=== PATIENT | female | born 1935 | race Caucasian/White ===

== ENCOUNTER 2021-12-14 03:43 | Observation (INO) ==
[2021-12-14] MEDS ORDERED: ALBUTEROL SULFATE 200 PUFF INHALER INH ONE (04:12)
--- NOTE | 2021-12-14 04:18 | Emergency Department Note ---
HPI General Chief complaint: Weakness Stated complaint: "not feeling well" Time Seen by Provider: 12/14/21 03:51 Source: patient and EMS Mode of arrival: EMS Limitations: no limitations History of Present Illness HPI Narrative: Narrative:86-year-old history of fibromyalgia, hypertension, hypothyroid, CHF, TIA, CABG, dementia, ? COPD presented to the ED with a some mild dyspnea that occurred just prior to arrival. She simply says that she had a hard time going to bed and sleeping tonight but for no obvious particular reason. And then she woke up at some point with shortness of breath. She has had some trouble occasionally like this in the past and was simply treated with albuterol family says but does not know of what diagnosis or of any chronic lung disease. Patient says she felt fine otherwise earlier today when she went to bed. She adamantly denies any other complaints at any time including fever chills URI symptoms, cough, hemoptysis, chest pain, abdominal pain, nausea vomiting diarrhea, genitourinary symptoms. She denies any generalized weakness but simply says she feels tired because she has not slept well tonight. She otherwise says she feels fine currently but is requiring some nasal oxygen Related Data Home Medications Medication Instructions Recorded Confirmed lisinopril 20 mg tablet 20 mg PO HS 30 Days #30 09/16/16 07/20/21 metoprolol tartrate 25 mg tablet 50 mg PO BID 30 Days #120 tab 03/27/18 07/20/21 apixaban 2.5 mg tablet (Eliquis) 2.5 mg PO HS 07/20/21 07/20/21 apixaban 5 mg tablet (Eliquis) 5 mg PO QAM 07/20/21 07/20/21 atorvastatin 20 mg tablet 20 mg PO HS 07/20/21 07/20/21 diltiazem HCl 120 mg capsule,24 120 mg PO HS 07/20/21 07/20/21 hr,extended release furosemide 20 mg tablet 20 mg PO QAM 07/20/21 07/20/21 ibuprofen 200 mg tablet 400 mg PO Q6H PRN 07/20/21 07/20/21 rivaroxaban 15 mg tablet (Xarelto) 15 mg PO QPM 07/20/21 07/20/21 Previous Rx's Medication Instructions Recorded nitroglycerin 0.4 mg sublingual See Dose Instructions SUBLINGUAL 08/27/15 tablet .COMPLEX PRN 0 Days #25 tab memantine 21 mg capsule 21 mg PO QDAY #90 each 09/18/18 sprinkle,extended release 24hr isosorbide mononitrate 30 mg 30 mg PO QDAY #90 tab 09/21/18 tablet,extended release 24 hr levothyroxine 100 mcg tablet 100 mcg PO QDAY #90 tab 09/25/18 Allergies Allergy/AdvReac Type Severity Reaction Status Date / Time codeine [CODEINE] AdvReac Intermediate Hypertensio Verified 12/14/21 03:48 n hydrocodone [HYDROCODONE] AdvReac Intermediate HYPOTENTION Verified 12/14/21 03:48 nitrofurantoin AdvReac Intermediate LEG PAIN Verified 12/14/21 03:48 [From MACROBID] From MACROBID AdvReac Intermediate LEG PAIN Uncoded 07/20/21 14:14 Review of Systems ROS ROS Narrative: Narrative: At least 10 systems reviewed and otherwise acutely negative except as in the HPI PFSH Narrative Patient History Narrative: Narrative: Medical/Surgical/Family History All Active Problems (Updated 12/14/21 @ 06:45 by Josias Fenton DO) Ulcer of right lower extremity (Acute) Infestation by maggots (Acute) Hypokalemia (Acute) Acute exacerbation of CHF (congestive heart failure) (Acute) Acute dyspnea (Acute) Right leg pain (Acute) Finger swelling (Acute) Cognitive Complaints (Chronic) Confusion (Chronic) Minimal cognitive impairment (Chronic) Atopic dermatitis (Chronic) 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) History of pacemaker (Chronic 08/09/13) 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) TIA (transient ischemic attack) (Chronic) Thyroid cancer (Chronic) Stress incontinence, female (Chronic) Orthostatic hypotension (Chronic) Lumbar disc disease (Chronic) Hypothyroidism (acquired) (Chronic) Hypertension, essential (Chronic) Hyperparathyroidism (Chronic) Hyperlipemia (Chronic) Fibromyalgia (Chronic) Esophageal reflux (Chronic) Atrial fibrillation (Chronic) Medical History (Updated 12/14/21 @ 06:45 by Josias Fenton DO) Atrial fibrillation Bradycardia Bronchitis Bronchitis CAD (coronary artery disease) Cardiomegaly Chest pain Dyspnea Esophageal reflux Fibromyalgia Ganglion Hyperlipemia Hyperparathyroidism Hypertension, essential Hypotension Hypothyroidism (acquired) Lumbar disc disease Orthostatic hypotension Palpitations Sick sinus syndrome Stress incontinence, female Supraventricular tachycardia Syncope due to orthostatic hypotension Tachy-mayo syndrome Thyroid cancer TIA (transient ischemic attack) Surgical History History of cardioversion (12/06/13) History of liver biopsy History of pacemaker (08/09/13) Dual-chamber pacemaker implant, atrial and ventricular lead implant, MRI safe device for atrial fibrillation, sick sinus syndrome, and tachycardia Hx of adenoidectomy Hx of angiography (09/14/13) Hx of appendectomy Hx of CABG (09/17/13) Hx of cardiac catheterization (07/30/14) Hx of cholecystectomy Hx of removal of cyst ganglion Hx of thyroidectomy Hx of tonsillectomy Hx of tricuspid valve repair (09/17/13) Family History mother Coronary artery disease Social History Smoking Status: Former smoker Alcohol Intake Frequency: 0-2 drinks per day Substance Use: does not use Exam Narrative Narrative: Narrative: Constitutional: normally developed, no acute distress, nontoxic but overall frail appearing Head: Normocephalic, atraumatic, Eyes: No Icterus, ENT: Moist mucus membranes, Neck: Supple, Cardiac: Normal heart sounds, palpable radial pulses, no peripheral edema Pulmonary: Normal respiratory effort but was slightly hypoxic on room air 89% very comfortable on 2 L nasal cannula she does have some focal right-sided rhonchi Gastrointestinal: Abdomen soft, non-distended, non-tender, Musculoskeletal: No gross deformities, well perfused Skin: warm, dry Neuro: Alert and oriented. General Limitations: no limitations Course Vital Signs Vital signs: Vital Signs Temperature 36.1 C 12/14/21 03:44 Pulse Rate 69 12/14/21 03:44 Respiratory Rate 20 12/14/21 03:44 Blood Pressure 157/83 12/14/21 03:44 Pulse Oximetry (%) 89 L 12/14/21 03:44 Temperature 36.1 C 12/14/21 03:44 Pulse Rate 65 12/14/21 06:31 Respiratory Rate 24 H 12/14/21 06:45 Blood Pressure 106/63 12/14/21 06:45 Pulse Oximetry (%) 93 12/14/21 06:31 MDM MDM Narrative Medical decision making narrative: Narrative: Patient with significant cardiac history with some acute dyspnea no other complaints work-up initiated. Did trial her with treatment of albuterol as well Twelve-lead EKG shows ventricularly paced rhythm heart rate 65 QTc within normal no acute ischemia or sgarbossa criteria X-ray interpreted per direct radiology shows vascular congestion bibasilar inf iltrates. Given lack of infectious symptoms and her extensive cardiac history I suspect this is more consistent with CHF. Did give her a dose of Lasix Covid flu negative electrolytes unremarkable, troponin I negative BNP 1700 elevated, no prior for comparison Procalcitonin negative She is beginning to diurese we did trial her off oxygen again but she desatted back into the 80s, given the fact she is now requiring some oxygen, does meet criteria for admission. I have spoken with [facility], they will be having a bed available here in the morning so we will plan to admit here. João harrington has no new complaints is feeling little bit better on reevaluation. Have spoken with hospitalist Dr. Reyes who accepts admission. Lab Data Result diagrams: 12/14/21 05:43 12/14/21 05:44 Labs: Lab Results 12/14/21 12/14/21 12/14/21 Range/Units 04:30 05:42 05:43 WBC 9.4 (4.5-11.0) K/mcL RBC 4.58 (3.59-5.38) M/mcL Hgb 12.0 (11.2-15.7) g/dL Hct 38.7 (34.1-44.9) % POC Hct 36 (36-48) % MCV 84.5 (80.0-100.0) fL MCH 26.2 (26.0-34.0) pg MCHC 31.0 (31.0-36.0) g/dL RDW 16.0 H (11.5-14.5) % Plt Count 229 (140-440) K/mcL MPV 10.1 (7.4-10.4) fL Neut % (Auto) 59.1 (38.0-78.0) % Lymph % (Auto) 26.3 (15.5-49.0) % [place] % (Auto) 9.1 (1.0-12.0) % Eos % (Auto) 4.4 (0.0-7.0) % Baso % (Auto) 1.1 (0.0-2.0) % Lymph # (Auto) 2.46 (1.50-4.80) K/mcL [place] # (Auto) 0.85 (0.10-0.90) K/mcL Eos # (Auto) 0.41 (0.00-0.70) K/mcL Baso # (Auto) 0.10 (0.00-0.30) K/mcL Absolute Neutrophils 5.55 (1.80-8.00) K/mcL POC Sodium 143 (133-145) mEq/L Sodium (133-145) mmol/L POC Potassium 3.8 (3.3-5.1) mEql/L Potassium (3.3-5.1) mmol/L POC Chloride 108 (96-108) mEq/L Chloride (96-108) mmol/L Carbon Dioxide (22-30) mmol/L POC Total CO2 25 (22-30) mmol/L Anion Gap (8.0-16.0) POC BUN 15 (6-20) mg/dL BUN (8-23) mg/dL Creatinine (0.6-1.1) mg/dL POC Creatinine 0.8 (0.6-1.2) mg/dL GFR Calculation Glucose (70-105) mg/dL POC Glucose 98 (70-105) mg/dL Calcium (8.6-10.4) mg/dL POC WB Ioniz Calcium 1.40 H (1.16-1.32) mmEq/L Troponin T < 0.01 (<0.03) ng/mL NT-Pro-B Natriuret Pep (<450.0) pg/mL Procalcitonin (<0.10) ng/mL POC Troponin I 0.01 L (0.02-0.08) ng/mL 12/14/21 12/14/21 Range/Units 05:43 05:44 WBC (4.5-11.0) K/mcL RBC (3.59-5.38) M/mcL Hgb (11.2-15.7) g/dL Hct (34.1-44.9) % POC Hct (36-48) % MCV (80.0-100.0) fL MCH (26.0-34.0) pg MCHC (31.0-36.0) g/dL RDW (11.5-14.5) % Plt Count (140-440) K/mcL MPV (7.4-10.4) fL Neut % (Auto) (38.0-78.0) % Lymph % (Auto) (15.5-49.0) % [place] % (Auto) (1.0-12.0) % Eos % (Auto) (0.0-7.0) % Baso % (Auto) (0.0-2.0) % Lymph # (Auto) (1.50-4.80) K/mcL [place] # (Auto) (0.10-0.90) K/mcL Eos # (Auto) (0.00-0.70) K/mcL Baso # (Auto) (0.00-0.30) K/mcL Absolute Neutrophils (1.80-8.00) K/mcL POC Sodium (133-145) mEq/L Sodium 139 (133-145) mmol/L POC Potassium (3.3-5.1) mEql/L Potassium 3.6 (3.3-5.1) mmol/L POC Chloride (96-108) mEq/L Chloride 106 (96-108) mmol/L Carbon Dioxide 24 (22-30) mmol/L POC Total CO2 (22-30) mmol/L Anion Gap 9.0 (8.0-16.0) POC BUN (6-20) mg/dL BUN 14 (8-23) mg/dL Creatinine 0.9 (0.6-1.1) mg/dL POC Creatinine (0.6-1.2) mg/dL GFR Calculation 58 Glucose 96 (70-105) mg/dL POC Glucose (70-105) mg/dL Calcium 9.8 (8.6-10.4) mg/dL POC WB Ioniz Calcium (1.16-1.32) mmEq/L Troponin T (<0.03) ng/mL NT-Pro-B Natriuret Pep 1727.0 H (<450.0) pg/mL Procalcitonin 0.04 (<0.10) ng/mL POC Troponin I (0.02-0.08) ng/mL ED POC Tests ED POC Tests: SAMANTHA - Influenza A Negative SAMANTHA - Influenza B Negative SAMANTHA - SARS Antigen Negative Discharge Plan Patient/Caregiver Discharge Instructions Pt seen by BRIAR CUTTER/PA only: No Clinical Impression: Acute exacerbation of CHF (congestive heart failure), Acute dyspnea Patient Disposition: Xfer As Inpt ([facility]) Condition: Fair Follow up with: Ham Owusu MD [Primary Care Provider] - Prescriptions: No Action nitroglycerin 0.4 mg tablet, sublingual See Dose Instructions mg SUBLINGUAL .COMPLEX PRN (Reason: chest pain) 0 Days Qty: 25 12RF Dose Instruction: Place one tablet under tongue at onset of chest pain- may repeat every 5 minutes x 2 more- if no relief - call 911. SUBLINGUAL PRN; until response; do not exceed 3 doses per event Rx Instructions: Place one tablet under tongue at onset of chest pain- may repeat every 5 minutes x 2 more- if no relief - call 911. isosorbide mononitrate 30 mg tablet extended release 24 hr 30 mg PO QDAY Qty: 90 1RF levothyroxine 100 mcg tablet 100 mcg PO QDAY Qty: 90 0RF lisinopril 20 tablet 20 mg PO HS 30 Days Qty: 30 0RF metoprolol tartrate 25 mg tablet 50 mg PO BID 30 Days Qty: 120 0RF memantine 21 mg capsule,sprinkle,ER 24hr 21 mg PO QDAY Qty: 90 3RF ibuprofen 200 mg Tablet 400 mg PO Q6H PRN (Reason: Pain) 0RF furosemide 20 mg Tablet 20 mg PO QAM 0RF Xarelto 15 mg Tablet 15 mg PO QPM 0RF Eliquis 2.5 mg Tablet 2.5 mg PO HS 0RF Eliquis 5 mg Tablet 5 mg PO QAM 0RF atorvastatin 20 mg tablet 20 mg PO HS 0RF Rx Instructions: 20 mg PO QHS diltiazem HCl 120 mg capsule,extended release 24 hr 120 mg PO HS 0RF
[2021-12-14 04:47] LABS: POC Blood Urea Nitrogen 15 mg/dL (6-20); POC CO2 25 mmol/L (22-30); POC Chloride 108 mEq/L (96-108); POC Creatinine 0.8 mg/dL (0.6-1.2); POC Glucose, Random 98 mg/dL (70-105); POC Hematocrit 36 % (36-48); POC Potassium 3.8 mEql/L (3.3-5.1); POC Sodium 143 mEq/L (133-145)
[2021-12-14] MEDS ORDERED: FUROSEMIDE 40 MG/4 ML VIAL IV ONE (04:49)
[2021-12-14 06:16] LABS: Basophils % (Auto) 1.1 % (0.0-2.0); Eosinophils # (Auto) 0.41 K/mcL (0.00-0.70); Eosinophils % (Auto) 4.4 % (0.0-7.0); Hematocrit 38.7 % (34.1-44.9); Lymphocytes # (Auto) 2.46 K/mcL (1.50-4.80); Lymphocytes % (Auto) 26.3 % (15.5-49.0); Mean Cell Volume 84.5 fL (80.0-100.0); Mean Platelet Volume 10.1 fL (7.4-10.4); Monocytes # (Auto) 0.85 K/mcL (0.10-0.90); Monocytes % (Auto) 9.1 % (1.0-12.0); Neutrophils % (Auto) 59.1 % (38.0-78.0); Platelet Count 229 K/mcL (140-440); RBC 4.58 M/mcL (3.59-5.38); WBC 9.4 K/mcL (4.5-11.0)
[2021-12-14 06:40] LABS: Blood Urea Nitrogen 14 mg/dL (8-23); Calcium 9.8 mg/dL (8.6-10.4); Carbon Dioxide 24 mmol/L (22-30); Chloride 106 mmol/L (96-108); Glomerular Filtration Rate 58; Glucose 96 mg/dL (70-105)
[2021-12-14] MEDS ORDERED: ONDANSETRON 4 MG/2 ML VIAL IV ONE (06:56)
[2021-12-14] MEDS ORDERED: ACETAMINOPHEN 325 MG TABLET PO PRN (06:56)
--- NOTE | 2021-12-14 07:30 | XRay Report ---
CLINICAL INFORMATION: Dyspnea COMPARISON: 07/20/2021 TECHNIQUE: PA and Lateral views FINDINGS: The heart is moderately enlarged-increased from prior exam. Pacemaker leads in stable satisfactory position. Mediastinum is normal. Pulmonary vessels are mildly distended and there is moderate interstitial edema throughout both lungs. Small bilateral pleural effusions noted. IMPRESSION: Moderate CHF Interpreted and Authenticated by: Juanjo Francis 12/14/21
[2021-12-14] MEDS ORDERED: ZOLPIDEM 5 MG TABLET PO PRN (08:40)
[2021-12-14] MEDS ORDERED: IPRATROPIUM/ALBUTEROL 3 ML AMPUL.NEB NEB PRN (08:40)
[2021-12-14] MEDS ORDERED: ONDANSETRON 4 MG/2 ML VIAL IV PRN (08:40)
--- NOTE | 2021-12-14 08:40 | Internal Med History&Physical ---
HPI History of Present Illness Patient information: Note initiated : 12/14/21 at 8:39 am Service Date, if different from initiated Date: [] Patient: Dominique Culp a 86 y/o F admitted on 12/14/21 for "Not Feeling Well". Chief Complaint: [insomnia] Chief complaint: insomnia History of present illness: Ms. Culp is a 86 year old F history of congestive heart failure, CAD status post cardiac pacemaker placement, atrial fibrillation's, hypothyroidism, thyroid cancer, presenting with 1 day history of insomnia. She was in her usual state of health but earlier this morning she woke up from sleep unable to sleep. She in particular denies any shortness of breath or chest pain. She denies any cough or wheezing or sputum productions. She denies any anxiety or agitations. She denies any fever chills or diaphoresis. She is vaccinated against Covid pneumonia. In the ED she was found to be mildly hypoxic with SPO2 in the mid 80s on room air which improved to mid 90s on 1 L of oxygen's. Labs significant for lack of leukocytosis with WBC of 9.4. Serum BNP 1727. Chest x-ray showing moderate CHF. Lori negative, Robinson pending. Constitutional Constitutional: Absent chills, excessive sweating, fatigue, fever(s) or weakness Additional comments: insomnia EENT Eyes: Absent blurry vision, change in vision, loss of vision or other visual disturbances Ears: Absent decreased hearing or tinnitus Nose, mouth and throat: Absent abnormal hearing, dry mouth, headache(s), nasal congestion or sore throat Cardiovascular Cardiovascular: Absent chest pain, chest pain at rest, edema, irregular heart rhythm or palpatations Respiratory Respiratory: Absent cough, dyspnea or wheezing Gastrointestinal Gastrointestinal: Absent abdominal pain, constipation, diarrhea, nausea or vomiting Musculoskeletal Musculoskeletal: Absent back pain, deformity, limited range of motion, muscle cramps, muscle weakness or numbness Integumentary Integumentary: Absent lesions, rash or wounds Neurological Neurological: Absent focal weakness, headache(s) or numbness Psychiatric Psychiatric: Absent anxiety, depression or hallucinations PFSH PFSH All Active Problems (Updated 12/14/21 @ 08:46 by Bertrand Reyes MD) CAD (coronary artery disease) (Acute) CHF (congestive heart failure) (Acute) Ulcer of right lower extremity (Acute) Infestation by maggots (Acute) Hypokalemia (Acute) Acute exacerbation of CHF (congestive heart failure) (Acute) Acute dyspnea (Acute) Right leg pain (Acute) Finger swelling (Acute) Cognitive Complaints (Chronic) Confusion (Chronic) Minimal cognitive impairment (Chronic) Atopic dermatitis (Chronic) 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) History of pacemaker (Chronic 08/09/13) 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) TIA (transient ischemic attack) (Chronic) Thyroid cancer (Chronic) Stress incontinence, female (Chronic) Orthostatic hypotension (Chronic) Lumbar disc disease (Chronic) Hypothyroidism (acquired) (Chronic) Hypertension, essential (Chronic) Hyperparathyroidism (Chronic) Hyperlipemia (Chronic) Fibromyalgia (Chronic) Esophageal reflux (Chronic) Atrial fibrillation (Chronic) Medical History (Updated 12/14/21 @ 08:46 by Bertrand Reyes MD) Atrial fibrillation Bradycardia Bronchitis Bronchitis CAD (coronary artery disease) Cardiomegaly Chest pain Dyspnea Esophageal reflux Fibromyalgia Ganglion Hyperlipemia Hyperparathyroidism Hypertension, essential Hypotension Hypothyroidism (acquired) Lumbar disc disease Orthostatic hypotension Palpitations Sick sinus syndrome Stress incontinence, female Supraventricular tachycardia Syncope due to orthostatic hypotension Tachy-mayo syndrome Thyroid cancer TIA (transient ischemic attack) Surgical History History of cardioversion (12/06/13) History of liver biopsy History of pacemaker (08/09/13) Dual-chamber pacemaker implant, atrial and ventricular lead implant, MRI safe device for atrial fibrillation, sick sinus syndrome, and tachycardia Hx of adenoidectomy Hx of angiography (09/14/13) Hx of appendectomy Hx of CABG (09/17/13) Hx of cardiac catheterization (07/30/14) Hx of cholecystectomy Hx of removal of cyst ganglion Hx of thyroidectomy Hx of tonsillectomy Hx of tricuspid valve repair (09/17/13) Family History mother Coronary artery disease Social History household members: other details: daughter marital status: occupational status: retired leisure activities: other physical activity: additional frequency: 5-6 times per week alcohol intake frequency: 0-2 drinks per day substance use type: does not use MEDS/ALLERGIES Home Medications and Allergies Home Medications Medication Instructions Recorded Confirmed Type nitroglycerin 0.4 mg sublingual See Dose Instructions SUBLINGUAL 08/27/15 07/20/21 Rx tablet .COMPLEX PRN 0 Days #25 tab lisinopril 20 mg tablet 20 mg PO HS 30 Days #30 09/16/16 07/20/21 History metoprolol tartrate 25 mg tablet 50 mg PO BID 30 Days #120 tab 03/27/18 07/20/21 History memantine 21 mg capsule 21 mg PO QDAY #90 each 09/18/18 07/20/21 Rx sprinkle,extended release 24hr isosorbide mononitrate 30 mg 30 mg PO QDAY #90 tab 09/21/18 07/20/21 Rx tablet,extended release 24 hr levothyroxine 100 mcg tablet 100 mcg PO QDAY #90 tab 09/25/18 07/20/21 Rx apixaban 2.5 mg tablet (Eliquis) 2.5 mg PO HS 07/20/21 07/20/21 History apixaban 5 mg tablet (Eliquis) 5 mg PO QAM 07/20/21 07/20/21 History atorvastatin 20 mg tablet 20 mg PO HS 07/20/21 07/20/21 History diltiazem HCl 120 mg capsule,24 120 mg PO HS 07/20/21 07/20/21 History hr,extended release furosemide 20 mg tablet 20 mg PO QAM 07/20/21 07/20/21 History ibuprofen 200 mg tablet 400 mg PO Q6H PRN 07/20/21 07/20/21 History rivaroxaban 15 mg tablet (Xarelto) 15 mg PO QPM 07/20/21 07/20/21 History Allergies Allergy/AdvReac Type Severity Reaction Status Date / Time codeine [CODEINE] AdvReac Intermediate Hypertensio Verified 12/14/21 03:48 n hydrocodone [HYDROCODONE] AdvReac Intermediate HYPOTENTION Verified 12/14/21 03:48 nitrofurantoin AdvReac Intermediate LEG PAIN Verified 12/14/21 03:48 [From MACROBID] From MACROBID AdvReac Intermediate LEG PAIN Uncoded 07/20/21 14:14 EXAM Constitutional Vitals: Temp Pulse Resp BP Pulse Ox 36.1 C 64 21 145/75 93 12/14/21 03:44 12/14/21 07:01 12/14/21 07:16 12/14/21 07:16 12/14/21 07:35 General appearance: cooperative and no acute distress Head Head exam: Present atraumatic and normocephalic Eye Eye exam: Present EOMI and PERRL ENT ENT exam: Present mucous membranes moist, normal exam and normal external ear exam Neck Neck exam: Absent lymphadenopathy, normal inspection, tenderness or thyromegaly Additional comments: surgical scar in place Thyroid glands surgically abscent Respiratory Respiratory exam: Present rhonchi; Absent accessory muscle use, respiratory distress or wheezes Cardiovascular Cardiovascular exam: Present irregular rhythm; Absent JVD Additional comments: cardiac pacemaker in place GI/Abdominal GI/Abdominal exam: Present normal bowel sounds and soft; Absent organomegaly or tenderness Extremities Exam Extremities exam: Present full ROM, normal capillary refill and normal inspection; Absent tenderness Neurological Exam Neurological exam: Present alert, CN II-XII intact and oriented X3; Absent motor sensory deficit Psychiatric Psychiatric exam: Present normal affect and normal mood; Absent anxious or depressed Skin Skin exam: Present dry and intact DATA Data Completed and Pending Labs: Labs from last 24 hours 12/14/21 12/14/21 12/14/21 05:44 05:43 05:43 WBC 9.4 RBC 4.58 Hgb 12.0 Hct 38.7 POC Hct MCV 84.5 MCH 26.2 MCHC 31.0 RDW 16.0 H Plt Count 229 MPV 10.1 Neut % (Auto) 59.1 Lymph % (Auto) 26.3 [place] % (Auto) 9.1 Eos % (Auto) 4.4 Baso % (Auto) 1.1 Lymph # (Auto) 2.46 [place] # (Auto) 0.85 Eos # (Auto) 0.41 Baso # (Auto) 0.10 Absolute Neutrophils 5.55 POC Sodium Sodium 139 POC Potassium Potassium 3.6 POC Chloride Chloride 106 Carbon Dioxide 24 POC Total CO2 Anion Gap 9.0 POC BUN BUN 14 Creatinine 0.9 POC Creatinine GFR Calculation 58 Glucose 96 POC Glucose Calcium 9.8 POC WB Ioniz Calcium Troponin T NT-Pro-B Natriuret Pep 1727.0 H Procalcitonin 0.04 POC Troponin I 12/14/21 12/14/21 05:42 04:30 WBC RBC Hgb Hct POC Hct 36 MCV MCH MCHC RDW Plt Count MPV Neut % (Auto) Lymph % (Auto) [place] % (Auto) Eos % (Auto) Baso % (Auto) Lymph # (Auto) [place] # (Auto) Eos # (Auto) Baso # (Auto) Absolute Neutrophils POC Sodium 143 Sodium POC Potassium 3.8 Potassium POC Chloride 108 Chloride Carbon Dioxide POC Total CO2 25 Anion Gap POC BUN 15 BUN Creatinine POC Creatinine 0.8 GFR Calculation Glucose POC Glucose 98 Calcium POC WB Ioniz Calcium 1.40 H Troponin T < 0.01 NT-Pro-B Natriuret Pep Procalcitonin POC Troponin I 0.01 L A/P Assessment and plan (1) Hx of CABG: Status: Chronic (2) History of pacemaker: Status: Chronic Comment: Dual-chamber pacemaker implant, atrial and ventricular lead implant, MRI safe device for atrial fibrillation, sick sinus syndrome, and tachycardia (3) Hypothyroidism (acquired): Status: Chronic (4) Atrial fibrillation: Status: Chronic (5) CHF (congestive heart failure): Status: Acute (6) CAD (coronary artery disease): Status: Acute (7) Minimal cognitive impairment: Status: Chronic Narrative A/P Narrative: Assessment and Plans: 1. CHF, clinically stable: Observation med surg telemetry Supplemental oxygen therapy Strict intake and output Daily weigh Lasix PO Metoprolol tartrate Lisinopril 2D echocardiogram Physical therapy Occupational therapy 2. Atrial fibrillation with pacemaker in place: Diltiazem Metoprolol tartrate Eliquis 3. h/o CAD with pacemaker in place: Statin Metoprolol tartrate 4. Hypothyroidism: Continue thyroid replacement therapy 5. MCI: Continue Memantine GI ppx: not currently indicated DVT ppx: Eliquis Code status: Ful Prognosis: stable Disposition: Observation med surg telemetry Time Spent With Patient Time: Total time spent is greater than 50% in coordination of care (as documented) at patient's floor/unit and/or counseling patient: Total time spent with greater than 50% in coordination of care (as documented) at patient's floor/unit and/or counseling patient:: Greater than 35 minutes QUALITY VTE Deep Vein Thrombosis/Pulmonary Embolism Present on Admission: No
[2021-12-14] MEDS ORDERED: IBUPROFEN 200 MG TABLET PO PRN (08:47)
[2021-12-14] MEDS ORDERED: APIXABAN 5 MG TABLET PO SCH (09:00)
--- NOTE | 2021-12-14 09:30 | EKG ---
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
[2021-12-14] MEDS: ISOSORBIDE MONONITRATE 30 MG TAB.XL.24H PO SCH (11:21)
[2021-12-14] MEDS: METOPROLOL TARTRATE 25 MG TABLET PO SCH ×2 (11:21→20:52)
[2021-12-14] MEDS: LEVOTHYROXINE 100 MCG TABLET PO SCH (11:22)
[2021-12-14] MEDS: DOCUSATE SODIUM 100 MG CAPSULE PO SCH ×2 (11:22→20:52)
[2021-12-14] MEDS: MEMANTINE 21 MG PO SCH (11:22)
[2021-12-14] MEDS: FUROSEMIDE 20 MG TABLET PO SCH (11:22)
[2021-12-14] MEDS ORDERED: RIVAROXABAN 15 MG TABLET PO SCH ×2 (17:30→21:00)
[2021-12-14] MEDS: 0.9 % SODIUM CHLORIDE 10 ML SYRINGE IV SCH ×2 (17:31→20:55)
[2021-12-14] MEDS ORDERED: SENNOSIDES 1 TABLET PO SCH (21:00)
[2021-12-14] MEDS ORDERED: DILTIAZEM 120 MG CAP.XL.24H PO SCH (21:00)
[2021-12-14] MEDS ORDERED: LISINOPRIL 20 MG TABLET PO SCH (21:00)
[2021-12-14] MEDS ORDERED: APIXABAN 2.5 MG PO SCH (21:00)
[2021-12-14] MEDS ORDERED: ATORVASTATIN 20 MG TABLET PO SCH (21:00)
[2021-12-15] MEDS: 0.9 % SODIUM CHLORIDE 10 ML SYRINGE IV SCH (04:31)
[2021-12-15 07:04] LABS: Basophils # (Auto) 0.07 K/mcL (0.00-0.30); Basophils % (Auto) 1.1 % (0.0-2.0); Eosinophils # (Auto) 0.24 K/mcL (0.00-0.70); Eosinophils % (Auto) 3.6 % (0.0-7.0); Hematocrit 33.7 % (34.1-44.9); Hemoglobin 10.7 g/dL (11.2-15.7); Lymphocytes # (Auto) 1.49 K/mcL (1.50-4.80); Lymphocytes % (Auto) 22.5 % (15.5-49.0); Mean Cell Volume 83.2 fL (80.0-100.0); Mean Corpuscular HGB Conc 31.8 g/dL (31.0-36.0); Monocytes # (Auto) 0.77 K/mcL (0.10-0.90); Monocytes % (Auto) 11.6 % (1.0-12.0); Neutrophils % (Auto) 61.2 % (38.0-78.0); Platelet Count 209 K/mcL (140-440); RBC 4.05 M/mcL (3.59-5.38); Red Cell Distribution Width 15.8 % (11.5-14.5); WBC 6.6 K/mcL (4.5-11.0)
[2021-12-15 07:28] LABS: Blood Urea Nitrogen 18 mg/dL (8-23); Calcium 9.9 mg/dL (8.6-10.4); Carbon Dioxide 29 mmol/L (22-30); Chloride 105 mmol/L (96-108); Glomerular Filtration Rate 67; Glucose 84 mg/dL (70-105); Phosphorous 2.4 mg/dL (2.5-4.5)
[2021-12-15] MEDS: METOPROLOL TARTRATE 25 MG TABLET PO SCH (08:59)
[2021-12-15] MEDS: ISOSORBIDE MONONITRATE 30 MG TAB.XL.24H PO SCH (08:59)
[2021-12-15] MEDS: FUROSEMIDE 20 MG TABLET PO SCH (08:59)
[2021-12-15] MEDS: DOCUSATE SODIUM 100 MG CAPSULE PO SCH (08:59)
[2021-12-15] MEDS: MEMANTINE 21 MG PO SCH (08:59)
[2021-12-15] MEDS: LEVOTHYROXINE 100 MCG TABLET PO SCH (08:59)
--- NOTE | 2021-12-15 09:15 | Discharge Summary ---
Discharge Provider Provider Patient information: Note initiated : 12/15/21 at 9:13 am Service Date, if different from initiated Date: [] Patient: Dominique Culp 86 y/o F admitted on 12/14/21 for "Not Feeling Well". Chief Complaint: [] Date of admission: 12/14/21 07:35 Discharge date: 12/15/21 Primary care physician: Ham Owusu Attending physician on admission: Bertrand Reyes Consults: 12/14/21 Consult to Physician [CONS] Stat Comment: Consulting Provider: Bertrand Reyes Reason For Exam: Physician to Consult Attending physician on discharge: Bertrand Reyes Discharge Meds Discharge Medications Home Medications nitroglycerin 0.4 mg sublingual tablet See Dose Instructions SUBLINGUAL .COMPLEX PRN 0 Days #25 tab 08/27/15 [Rx Confirmed 12/14/21 Last Taken 07/21/21] lisinopril 20 mg tablet 20 mg PO HS 30 Days #30 09/16/16 [History Confirmed 12/14/21 Last Taken 07/21/21] metoprolol tartrate 25 mg tablet 50 mg PO BID 30 Days #120 tab 03/27/18 [History Confirmed 12/14/21 Last Taken 07/22/21 05:30] memantine 21 mg capsule sprinkle,extended release 24hr 21 mg PO QDAY #90 each 09/18/18 [Rx Confirmed 12/14/21 Last Taken 07/21/21] isosorbide mononitrate 30 mg tablet,extended release 24 hr 30 mg PO QDAY #90 tab 09/21/18 [Rx Confirmed 12/14/21 Last Taken 07/22/21 05:30] levothyroxine 100 mcg tablet 100 mcg PO QDAY #90 tab 09/25/18 [Rx Confirmed 12/14/21 Last Taken 07/22/21 05:30] atorvastatin 20 mg tablet 20 mg PO HS 07/20/21 [History Confirmed 12/14/21 Last Taken 07/21/21] diltiazem HCl 120 mg capsule,24 hr,extended release 120 mg PO HS 07/20/21 [History Confirmed 12/14/21 Last Taken 07/21/21] furosemide 20 mg tablet 20 mg PO QAM 07/20/21 [History Confirmed 12/14/21 Last Taken 07/21/21] ibuprofen 200 mg tablet 400 mg PO Q6H PRN 07/20/21 [History Confirmed 12/14/21 Last Taken 07/21/21] rivaroxaban 15 mg tablet (Xarelto) 15 mg PO QPM 07/20/21 [History Confirmed 12/14/21 Last Taken 07/21/21] COURSE Hospital Course Hospital course: Ms. Culp is a 86 year old F history of congestive heart failure, CAD status post cardiac pacemaker placement, atrial fibrillation's, hypothyroidism, thyroid cancer, presenting with 1 day history of insomnia. She was in her usual state of health but earlier this morning she woke up from sleep unable to sleep. She in particular denies any shortness of breath or chest pain. She denies any cough or wheezing or sputum productions. She denies any anxiety or agitations. She denies any fever chills or diaphoresis. She is vaccinated against Covid pneumonia. In the ED she was found to be mildly hypoxic with SPO2 in the mid 80s on room air which improved to mid 90s on 1 L of oxygen's. Labs significant for lack of leukocytosis with WBC of 9.4. Serum BNP 1727. Chest x-ray showing moderate CHF. Lori negative, [place] pending. 12/15: Returned back to clinical stability, decision made to discharge her home on room air. 1 week PCP follow up appointment made for her. All questions were answered prior to patient being physically discharged. Discharge diagnosis: stable CHF Time Spent with Patient Time attestation: Total time spent providing and/or coordinating discharge services: Time spent: Less than 30 minutes EXAM Constitutional Vitals: Temp Pulse Resp BP Pulse Ox 36.7 C 72 20 143/75 96 12/15/21 07:16 12/15/21 07:30 12/15/21 07:30 12/15/21 07:16 12/15/21 07:30 General appearance: cooperative and no acute distress Head Head exam: Present atraumatic and normocephalic Eye Eye exam: Present EOMI and PERRL ENT ENT exam: Present mucous membranes moist, normal exam and normal external ear exam Neck Neck exam: Present normal inspection; Absent lymphadenopathy, tenderness or thyromegaly Respiratory Respiratory exam: Absent accessory muscle use, respiratory distress or wheezes Cardiovascular Cardiovascular exam: Present irregular rhythm; Absent JVD GI/Abdominal GI/Abdominal exam: Present normal bowel sounds and soft; Absent organomegaly or tenderness Extremities Exam Extremities exam: Present full ROM, normal capillary refill and normal inspection; Absent tenderness Neurological Exam Neurological exam: Present alert, CN II-XII intact and oriented X3; Absent motor sensory deficit Psychiatric Psychiatric exam: Present normal affect and normal mood; Absent anxious or depressed Skin Skin exam: Present dry and intact Discharge Data Data Completed and Pending Labs on day of discharge: Labs from last 24 hours 12/15/21 12/15/21 05:54 05:54 WBC 6.6 RBC 4.05 Hgb 10.7 L Hct 33.7 L MCV 83.2 MCH 26.4 MCHC 31.8 RDW 15.8 H Plt Count 209 MPV 10.0 Neut % (Auto) 61.2 Lymph % (Auto) 22.5 [place] % (Auto) 11.6 Eos % (Auto) 3.6 Baso % (Auto) 1.1 Lymph # (Auto) 1.49 L [place] # (Auto) 0.77 Eos # (Auto) 0.24 Baso # (Auto) 0.07 Absolute Neutrophils 4.04 Sodium 141 Potassium 3.4 Chloride 105 Carbon Dioxide 29 Anion Gap 7.0 L BUN 18 Creatinine 0.8 GFR Calculation 67 Glucose 84 Calcium 9.9 Phosphorus 2.4 L Magnesium 2.2 Discharge Plan Patient/Caregiver Discharge Instructions Activity: increase activity as tolerated Diet: Regular Diet Prescriptions: Continued nitroglycerin 0.4 mg tablet, sublingual See Dose Instructions mg SUBLINGUAL .COMPLEX PRN (Reason: chest pain) 0 Days Qty: 25 12RF Dose Instruction: Place one tablet under tongue at onset of chest pain- may repeat every 5 minutes x 2 more- if no relief - call 911. SUBLINGUAL PRN; until response; do not exceed 3 doses per event Rx Instructions: Place one tablet under tongue at onset of chest pain- may repeat every 5 minutes x 2 more- if no relief - call 911. isosorbide mononitrate 30 mg tablet extended release 24 hr 30 mg PO QDAY Qty: 90 1RF levothyroxine 100 mcg tablet 100 mcg PO QDAY Qty: 90 0RF lisinopril 20 tablet 20 mg PO HS 30 Days Qty: 30 0RF metoprolol tartrate 25 mg tablet 50 mg PO BID 30 Days Qty: 120 0RF memantine 21 mg capsule,sprinkle,ER 24hr 21 mg PO QDAY Qty: 90 3RF ibuprofen 200 mg Tablet 400 mg PO Q6H PRN (Reason: Pain) 0RF furosemide 20 mg Tablet 20 mg PO QAM 0RF Xarelto 15 mg Tablet 15 mg PO QPM 0RF atorvastatin 20 mg tablet 20 mg PO HS 0RF Rx Instructions: 20 mg PO QHS diltiazem HCl 120 mg capsule,extended release 24 hr 120 mg PO HS 0RF Follow Up Plan Follow up with: Ham Owusu MD [Primary Care Provider] - Patient Disposition: Home, Self-Care Prognosis: Fair Rehab Potential: Good I certify that the patient requires SNF services: No Overall status at discharge: patient is back to baseline Discharge Orders: Discharge Order (Routine); Ordered 12/15/21 Ordered By: Bertrand DUARTE VTE Deep Vein Thrombosis/Pulmonary Embolism Present on Admission: No
== END 2021-12-15 11:35 | disposition home or self-care (01) ==
LOC: ED 03:43 → MEDSUR 07:35 → INTOOBSV 07:35
PROVIDERS: ADMIT Internal Medicine; ATTEND Internal Medicine